=== PATIENT | male | born 1985 | race Caucasian/White ===

== ENCOUNTER 2018-09-01 21:24 | Emergency (ER) | payer OTHER ==
[2018-09-01 21:30] VITALS: BP 154/77
[2018-09-01] MEDS ORDERED: IBUPROFEN 600 MG TAB PO ONE (21:37)
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
== END 2018-09-01 22:23 | disposition home or self-care (01) ==
PROC: 2W3GX1Z Immobilization of Right Thumb using Splint (ICD-10-PCS; principal; 2018-09-01)
DX: S69.90XA Unspecified injury of unspecified wrist, hand and finger(s), initial encounter (principal); V18.4XXA Pedal cycle driver injured in noncollision transport accident in traffic accident, initial encounter; Y93.55 Activity, bike riding; Y92.9 Unspecified place or not applicable
CPT/HCPCS: L3807